=== PATIENT | male | born 1960 | race Caucasian/White ===

== ENCOUNTER → 2016-12-22 | Outpatient (CLI) | payer BC ==
[~2016-12-22] MED LIST: LINA1TAB PO; LPT10 PO
[2016-12-22 09:39] LABS: HEMATOCRIT 46.2 % (42-52); MEAN CELL VOLUME 103.6 fL (80-100); MEAN CORPUSCULAR HGB CONC 33.8 g/dl (32-36); MEAN PLATELET VOLUME 9.4 fL (7.4-10.4); PLATELET COUNT 183 K/uL (130-400); RED BLOOD COUNT 4.46 M/uL (4.7-6.1); WHITE BLOOD COUNT 6.43 K/uL (4.8-10.8)
[2016-12-22 09:54] LABS: ESTIMATED AVERAGE GLUCOSE 128 mg/dl; HA1C FLAG Normal (Normal)
[2016-12-22 10:00] LABS: ALT/SGPT 41 U/L (12-78); BLOOD UREA NITROGEN 19 mg/dl (7-18); BUN/CREATININE RATIO 19.4 (10-20); CARBON DIOXIDE 28 mmol/L (21-32); CHLORIDE 102 mmol/L (98-107); CHOLESTEROL 186 mg/dl (0-200); CREATININE 0.97 mg/dl (0.60-1.40); GLUCOSE 101 mg/dl (70-99); POTASSIUM 4.2 mmol/L (3.5-5.1); SODIUM 137 mmol/L (136-145); TRIGLYCERIDES 137 mg/dl (0-150); URIC ACID 4.6 mg/dl (2.6-7.2); VERY LOW DENSITY LIPOPROT CALC 27 mg/dl
[2016-12-22 10:08] LABS: CALCIUM 9.1 mg/dl (8.5-10.1)
[2016-12-22 10:09] LABS: ALB/GLOB RATIO 1.4 (0.9-2); ALKALINE PHOSPHATASE 47 U/L (45-117); AST/SGOT 22 U/L (15-37); HDL CHOLESTEROL 47 mg/dl; LDL CHOLESTEROL CALCULATED 112 mg/dl
[2016-12-22 10:16] LABS: BASO ABS # 0.06 K/uL (0-0.2); BASOPHIL % 0.9 % (0-2); COMPLETE YES; EOSINOPHIL % 5.4 %; LYMPH ABS # 1.67 K/uL (1.2-3.4); LYMPHOCYTE % 25.9 %; NEUTROPHILS % 36.5 %; VARIANT LYM ABS # 1.61 K/uL
[2016-12-23 10:10] LABS: C-REACTIVE PROT HIGHSEN 0.5 MG/L
== END | disposition home or self-care (01) ==
LOC: C.LAB1850 08:33
PROVIDERS: ATTEND Family Medicine
DX: R73.09 Other abnormal glucose (principal); E55.9 Vitamin D deficiency, unspecified; D51.9 Vitamin B12 deficiency anemia, unspecified

== ENCOUNTER → 2017-05-05 | Outpatient (CLI) | payer BC ==
[2017-05-05 09:34] LABS: BASO % 0.5 %; BASO ABS # 0.03 K/uL (0-0.2); COMPLETE YES; EOS % 5.9 %; HEMATOCRIT 41.6 % (42-52); IG% 0.2 %; LYMPH % 43.3 %; LYMPH ABS # 2.59 K/uL (1.2-3.4); MEAN CELL VOLUME 103.5 fL (80-100); MEAN CORPUSCULAR HEMOGLOBIN 36.1 pg (25-34); MEAN CORPUSCULAR HGB CONC 34.9 g/dl (32-36); MEAN PLATELET VOLUME 9.4 fL (7.4-10.4); MONO % 9.2 %; NEUT % 40.9 %; PLATELET COUNT 183 K/uL (130-400); RED BLOOD COUNT 4.02 M/uL (4.7-6.1); WHITE BLOOD COUNT 5.98 K/uL (4.8-10.8)
[2017-05-05 09:55] LABS: ESTIMATED AVERAGE GLUCOSE 108 mg/dl; HA1C FLAG Normal (Normal)
[2017-05-05 10:25] LABS: ALT/SGPT 30 U/L (12-78); AST/SGOT 22 U/L (15-37); BLOOD UREA NITROGEN 15 mg/dl (7-18); BUN/CREATININE RATIO 16.1 (10-20); CALCIUM 9.4 mg/dl (8.5-10.1); CARBON DIOXIDE 30 mmol/L (21-32); CHLORIDE 102 mmol/L (98-107); CHOLESTEROL 176 mg/dl (0-200); CREATININE 0.92 mg/dl (0.60-1.40); GLUCOSE 102 mg/dl (70-99); POTASSIUM 4.1 mmol/L (3.5-5.1); SODIUM 136 mmol/L (136-145); TRIGLYCERIDES 108 mg/dl (0-150); URIC ACID 5.3 mg/dl (2.6-7.2); VERY LOW DENSITY LIPOPROT CALC 22 mg/dl
[2017-05-05 10:34] LABS: ALB/GLOB RATIO 1.2 (0.9-2); ALKALINE PHOSPHATASE 54 U/L (45-117); CHOLESTEROL/HDL RATIO 3.3; HDL CHOLESTEROL 53 mg/dl; LDL CHOLESTEROL CALCULATED 101 mg/dl; TOTAL IRON BINDING CAPACITY 344 mcg/dl (250-450)
--- NOTE | 2017-06-04 05:57 | CODING QUERY MEDICAL NECESSITY ---
SUPPORTING DIAGNOSIS NEEDED A supporting diagnosis is required for the test/procedure performed on this patient in order for us to be reimbursed by the patient's insurance. Please provide a supporting diagnosis for the following test/procedure listed below next to the test name along with your signature. *If there is no additional diagnosis for this patient that would support the following test/procedure please document that below next to the test/procedure. Test(s)/Procedure(s) that require a supporting diagnosis: DOS 05/05 * Hba1c DIAGNOSIS: * Vit D DIAGNOSIS: * Vit B12 DIAGNOSIS: * TSH DIAGNOSIS: * CPK DIAGNOSIS: Provider Signature: Date: Thank you Brisa Robledo [facility] Information Management Once completed, please kindly fax back to [phone] For questions please call [phone]
== END | disposition home or self-care (01) ==
LOC: C.LAB1850 08:44
PROVIDERS: ATTEND Family Medicine
DX: R73.09 Other abnormal glucose (principal); E55.9 Vitamin D deficiency, unspecified; D51.9 Vitamin B12 deficiency anemia, unspecified; E78.9 Disorder of lipoprotein metabolism, unspecified; R53.83 Other fatigue

== ENCOUNTER → 2017-05-13 | Outpatient (CLI) | payer BC ==
--- NOTE | 2017-05-13 13:55 | DIAGNOSTIC IMAGING REPORT ---
(RENAL)RETROPERITONEA COMP HISTORY: Urinary tract obstruction URINARY RETENTION, W/VPR COMPARISON: None. FINDINGS: Right kidney: Maximum dimension 11.1 cm. No evidence for hydronephrosis Normal corticomedullary differentiation and cortical thickness. Left kidney: Maximum dimension 11.7 cm. No evidence for hydronephrosis. Normal corticomedullary differentiation and cortical thickness. Bladder: No bladder wall thickening. The bilateral ureteral jets were identified. Post void volume 35 cc IMPRESSION: Normal renal ultrasound. Post void volume 35 cc The above report was generated using voice recognition software. It may contain grammatical, syntax or spelling errors. Electronically signed by: Phoenix Birmingham M.D. 05/13/2017 1:54 PM Dictated Date/Time: 05/13/2017 1:53 PM
== END | disposition home or self-care (01) ==
LOC: C.ULTR 12:50
PROVIDERS: ATTEND Family Medicine
DX: R33.9 Retention of urine, unspecified (principal)

== ENCOUNTER → 2017-05-17 | Outpatient (CLI) | payer BC ==
[2017-05-17 12:37] LABS: URINE TOTAL PROTEIN 5.2 mg/dl (0-11.9)
[2017-05-17 15:26] LABS: URINE TOTAL PROTEIN CALC 174.2 mg/24 hr (0-149.1)
== END | disposition home or self-care (01) ==
LOC: C.LAB 09:54
PROVIDERS: ATTEND Family Medicine
DX: R35.8 Other polyuria (principal)

== ENCOUNTER → 2017-06-18 | Outpatient (CLI) | payer BC ==
--- NOTE | 2017-06-18 18:25 | DIAGNOSTIC IMAGING REPORT ---
ULTRASOUND VENOUS DOPPLER ULTRASOUND OF THE RIGHT LOWER EXTREMITY CLINICAL HISTORY: Right leg pain and swelling. COMPARISON STUDY: No previous studies for comparison. FINDINGS: Real-time and color flow Doppler imaging were performed. Flow was seen within the femoral, popliteal and calf veins with no intraluminal thrombus demonstrated. The saphenous vein is patent. IMPRESSION: No evidence of right lower extremity DVT. Electronically signed by: Hector Bowen M.D. 06/18/2017 6:24 PM Dictated Date/Time: 06/18/2017 6:23 PM
== END | disposition home or self-care (01) ==
LOC: C.ULTR 17:53
PROVIDERS: ATTEND Family Medicine
DX: I82.4Z1 Acute embolism and thrombosis of unspecified deep veins of right distal lower extremity (principal)

== ENCOUNTER → 2017-08-17 | Outpatient (CLI) | payer BC ==
[2017-08-17 10:01] LABS: URINE APPEARANCE CLEAR (CLEAR); URINE BILIRUBIN NEG (NEG); URINE COLOR YELLOW; URINE EPITHELIAL CELL AUTO 0-5 /lpf (0-5); URINE NITRITE NEG (NEG); URINE PH 7.5 (4.5-7.5); URINE SPECIFIC GRAVITY 1.005 (1.000-1.030); UROBILINOGEN NEG (NEG)
[2017-08-17 10:04] LABS: MANUAL MICROSCOPIC REQUIRED? NO; REVIEW REQ? NO
== END | disposition home or self-care (01) ==
LOC: C.LAB1850 08:43
PROVIDERS: ATTEND Family Medicine
DX: N32.81 Overactive bladder (principal); E11.9 Type 2 diabetes mellitus without complications

== ENCOUNTER → 2017-11-03 | Outpatient (CLI) | payer BC ==
[2017-11-03 09:57] LABS: BASO % 0.8 %; BASO ABS # 0.04 K/uL (0-0.2); EOS % 5.4 %; EOS ABS # 0.28 K/uL (0-0.5); HEMATOCRIT 42.9 % (42-52); HEMOGLOBIN 14.8 g/dL (14.0-18.0); LYMPH % 45.4 %; LYMPH ABS # 2.36 K/uL (1.2-3.4); MEAN CELL VOLUME 103.9 fL (80-100); MEAN CORPUSCULAR HEMOGLOBIN 35.8 pg (25-34); MEAN CORPUSCULAR HGB CONC 34.5 g/dl (32-36); MEAN PLATELET VOLUME 9.2 fL (7.4-10.4); MONO % 7.5 %; MONO ABS # 0.39 K/uL (0.11-0.59); NEUT % 40.9 %; NEUT ABS # 2.13 K/uL (1.4-6.5); PLATELET COUNT 212 K/uL (130-400); RED CELL DISTRIBUTION WIDTH CV 12.5 % (11.5-14.5); RED CELL DISTRIBUTION WIDTH SD 47.4 fL (36.4-46.3)
[2017-11-03 10:28] LABS: HEMOGLOBIN A1C 5.7 % (4.5-5.6)
[2017-11-03 10:41] LABS: ALBUMIN 3.9 gm/dl (3.4-5.0); ALT/SGPT 32 U/L (12-78); AST/SGOT 17 U/L (15-37); BLOOD UREA NITROGEN 13 mg/dl (7-18); CALCIUM 8.9 mg/dl (8.5-10.1); CARBON DIOXIDE 31 mmol/L (21-32); CHOLESTEROL 183 mg/dl (0-200); CREATININE 0.92 mg/dl (0.60-1.40); GLUCOSE 115 mg/dl (70-99); POTASSIUM 4.2 mmol/L (3.5-5.1); SODIUM 136 mmol/L (136-145)
[2017-11-03 10:52] LABS: ALKALINE PHOSPHATASE 54 U/L (45-117); LDL CHOLESTEROL CALCULATED 104 mg/dl; TOTAL PROTEIN 7.6 gm/dl (6.4-8.2); TRANSFERRIN 280 mg/dl (200-360)
== END | disposition home or self-care (01) ==
LOC: C.LAB1850 08:53
PROVIDERS: ATTEND Family Medicine
DX: E88.81 Metabolic syndrome and other insulin resistance (principal); E55.9 Vitamin D deficiency, unspecified; D51.9 Vitamin B12 deficiency anemia, unspecified; E78.9 Disorder of lipoprotein metabolism, unspecified; R53.83 Other fatigue; N40.0 Benign prostatic hyperplasia without lower urinary tract symptoms